=== PATIENT | female | born 1960 | race African-American/Black ===

== ENCOUNTER → 2016-04-17 | Outpatient (CLI) | payer OTHER ==
[~2016-04-17] MED LIST: DILA100C PO; HEMATAB PO; LEVO.125 PO
[2016-04-17 11:30] LABS: MEAN CORPUSCULAR HGB CONC 29.1 % (32.0-36.0)
[2016-04-17 11:55] LABS: HEMATOCRIT 29.2 % (35.0-46.0); MEAN CELL VOLUME 72.8 FL (80.0-100.0); MEAN CORPUSCULAR HEMOGLOBIN 21.1 PG (27.0-34.0); PLATELET COUNT 184 TH/MM3 (150-450); RED BLOOD COUNT 4.02 MIL/MM3 (4.00-5.30); RED CELL DISTRIBUTION WIDTH 17.8 % (11.6-17.2); WHITE BLOOD COUNT 3.4 TH/MM3 (4.0-11.0)
[2016-04-17 11:57] LABS: REVIEW FLAG FINAL
[2016-04-17 12:39] LABS: ALKALINE PHOSPHATASE 76 U/L (45-117); ALT (GPT) 21 U/L (10-53); ANION GAP 9 MEQ/L (5-15); AST (GOT) 14 U/L (15-37); BICARBONATE 27.3 MEQ/L (21.0-32.0); BLOOD UREA NITROGEN 9 MG/DL (7-18); CHLORIDE 104 MEQ/L (98-107); FERRITIN 4 NG/ML (8-252); FOLLICLE STIMULATING HORMONE 17.1 mIU/mL; GLOMERULAR FILTRATION RATE 79 ML/MIN (>89); GLUCOSE,FASTING 97 MG/DL (74-99); LUTEINIZING HORMONE 21.6 mIU/mL; POTASSIUM 3.9 MEQ/L (3.5-5.1); SODIUM (NA) 140 MEQ/L (136-145); TOTAL BILIRUBIN ADULT 0.3 MG/DL (0.2-1.0); TRANSFERRIN IRON PROFILE 293 MG/DL (200-360)
[2016-04-20 14:34] LABS: ESTRADIOL 297 pg/mL (())
== END ==
LOC: CLAB 11:24
PROVIDERS: ATTEND Family Medicine
DX: R56.9 Unspecified convulsions (principal); D64.9 Anemia, unspecified; E03.9 Hypothyroidism, unspecified; Z79.899 Other long term (current) drug therapy
CPT/HCPCS: 36415; 80053; 80185; 82607; 82670; 82679; 82728; 83001; 83002; 83540; 83550; 85027

== ENCOUNTER → 2016-05-18 | Outpatient (CLI) | payer OTHER | LOC: CLAB 12:55 | PROVIDERS: ATTEND Physician Assistant Medical | DX: G40.909 Epilepsy, unspecified, not intractable, without status epilepticus (principal) | CPT/HCPCS: 36415; 80185 ==

== ENCOUNTER → 2016-05-21 | Outpatient (CLI) | payer OTHER | LOC: CLAB 15:01 | PROVIDERS: ATTEND Nurse Practitioner Family | DX: G40.909 Epilepsy, unspecified, not intractable, without status epilepticus (principal) | CPT/HCPCS: 36415; 80185 ==

== ENCOUNTER → 2016-05-22 | Outpatient (CLI) | payer OTHER ==
--- NOTE | 2016-05-22 14:31 | MG ---
cc: BARNEY NEAL Lab No: Date: 05/22/2016 Age: 55 Sex: F Seizures three weeks ago, staring forward, 55-year-old, Dilantin. DESCRIPTION A 10-11 Hz, 50 microvolt symmetric posterior rhythm is noted. The recording overall is synchronous and symmetric. No hemisphere asymmetries are seen. Hyperventilation was performed without significant change in the background, just some movement artifact. Overall there is no abnormalities on the recording. It is all synchronous and symmetric. Photic stimulation was performed without significant posterior driving. IMPRESSION A normal awake EEG. No evidence for a focal or diffuse abnormality. MD ABIGAIL Prince/HERNAN /2:09 PM /2:27 PM
== END ==
LOC: HEEG 08:35
PROVIDERS: ATTEND Family Medicine
DX: G40.909 Epilepsy, unspecified, not intractable, without status epilepticus (principal)
CPT/HCPCS: 95819

== ENCOUNTER → 2016-09-23 | Outpatient (CLI) | payer OTHER | LOC: CLAB 09:25 | PROVIDERS: ATTEND Family Medicine | DX: G40.909 Epilepsy, unspecified, not intractable, without status epilepticus (principal) | CPT/HCPCS: 36415; 80185 ==

== ENCOUNTER → 2016-09-28 | Outpatient (CLI) | payer OTHER | LOC: CLAB 10:36 | PROVIDERS: ATTEND Family Medicine | DX: G40.909 Epilepsy, unspecified, not intractable, without status epilepticus (principal) | CPT/HCPCS: 36415; 80185 ==

== ENCOUNTER → 2016-10-02 | Outpatient (CLI) | payer OTHER | LOC: CLAB 09:11 | PROVIDERS: ATTEND Family Medicine | DX: G40.909 Epilepsy, unspecified, not intractable, without status epilepticus (principal) | CPT/HCPCS: 36415; 80185 ==

== ENCOUNTER → 2016-11-10 | Outpatient (CLI) | payer OTHER | LOC: CLAB 12:02 | PROVIDERS: ATTEND Family Medicine | DX: G40.909 Epilepsy, unspecified, not intractable, without status epilepticus (principal) | CPT/HCPCS: 36415; 80185 ==

== ENCOUNTER → 2016-11-12 | Outpatient (CLI) | payer OTHER | LOC: CLAB 09:40 | PROVIDERS: ATTEND Family Medicine | DX: G40.909 Epilepsy, unspecified, not intractable, without status epilepticus (principal) | CPT/HCPCS: 36415; 80185 ==